=== PATIENT | female | born 2005 | race Caucasian/White ===

== ENCOUNTER 2024-06-05 15:36 | Emergency (ER) | payer OTHER, SELFPAY ==
[2024-06-05 15:49] VITALS: BP 109/61; PULSE 81; RESP 16; TEMP 36.5; O2SAT 100; BMI 24.0
--- NOTE | 2024-06-05 16:04 | ED_ITS ---
HPI - General Adult General Chief complaint: Extremity Problem Stated complaint: Foot injury Time Seen by Provider: 06/05/24 16:01 Source: patient Mode of arrival: ambulatory Limitations: no limitations History of Present Illness ED Provider: Marcial ERICKSON HPI narrative: 18-year-old female healthy no past medical history presents to ED for chronic ingrown toenails of bilateral great toes for 1 year. Patient had another exacerbation the past couple of days. Patient denies any recent trauma, fever, or chills. Related Data Previous Rx's ?Medication ?Instructions ?Recorded triamcinolone acetonide 0.5 % 1 appl topical BID 2 weeks #15 06/05/24 topical cream grams Allergies Allergy/AdvReac Type Severity Reaction Status Date / Time No Known Allergies Allergy Verified 06/05/24 15:57 Review of Systems 2 Review of Systems: bilateral ingrown toe kings Yes all other systems are reviewed and are negative [facility] Social History Social History Advance Directives: No Advance Directives Information Provided: Yes Physical Exam ED Vital Signs: Vital Signs - 24 hr 06/05/24 15:49 Temperature 97.7 F Pulse Rate 81 Respiratory Rate 16 Blood Pressure 109/61 Pulse Oximetry 100 Oxygen Delivery Method Room Air BMI result Body Mass Index 24.0 Const General: cooperative, healthy appearing, comfortable, no acute distress, well developed, alert, awake and Physically active [facility] Head: Yes normal to inspection, Yes No palpable skull fracture present, Yes normocephalic and Yes atraumatic Eyes General: appearance normal, both eyes and all related structures Neck Neck: Yes normal visual inspection, Yes full ROM, Yes no lymphadenopathy, Yes no meningeal signs, Yes trachea midline, Yes supple, No anterior neck swelling and No tender Chest Chest palpation & inspection: normal inspection of the chest and normal palpation of entire chest wall Resp Effort & Inspection: normal respiratory effort and able to speak in complete sentences Auscultation: clear to auscultation bilaterally Cardio Jugular venous distension: no JVD Heart sounds: S1 normal heart sound present and S2 normal heart sound present GI Inspection: Yes normal to inspection Palpation (GI): Soft to palpation, not firm, nontender, no guarding and not rigid General: No CVA tenderness and Yes no CVA tenderness Back/Spine/Pelvis Back: no CVA tenderness, No CVA tenderness and No back tenderness Skin General skin exam: no rashes or lesions noted, elasticity normal and turgor normal Neuro General: gait normal, tone normal, moves all extremities, Normal light touch and pain sensation, no meningeal signs, no focal motor deficits, CN's II-XI intact bilaterally and normal sensation to monofilament Extrem Other: Positive for bilateral greater ingrown toenails General: Yes normal to inspection and Yes full ROM Ankle/foot/toe images: 2 1. Positive for ingrown toenail. Negative for any pus discharge or foul odor. Positive for slight erythema. Negative ecchymosis. Negative for crepitus or swelling. Rest of extremity normal. Motor/neuro/vascular exam intact. 2. Positive for ingrown toenail. Negative for any pus discharge or foul odor. Positive for slight erythema. Negative ecchymosis. Negative for crepitus or swelling. Rest of extremity normal. Motor/neuro/vascular exam intact. Psych Appearance: grossly normal, well kempt and not disheveled Medical Decision Making Medical Decision Making MDM Narrative: 18-year-old female presents ED for bilateral great toe ingrown toenail that has been chronic for year and exacerbated the past couple of days. Patient denies any recent trauma, feet swelling, fever, chills, bluish discoloration, or numbness/tingling. Physical exam positive for bilateral ingrown toenails of great toe without any pus discharge or signs of infection. Daughter and mother educated on conservative treatment management as per up-to-date. Would recommend warm soapy water soak the foot for 10-20 minutes twice a day for 2 weeks and also high dose steroids on ingrown toenail for the past 2 weeks. Patient and mother explained worrisome signs and informed to return to the ED immediately. Not suspecting cellulitis, paronychia, osteomyelitis, fracture, gout Differential Diagnosis Differential Diagnoses: The differential diagnosis associated with the presentation includes (ingrown toe nail, contact dermatitis, cellulitis) Admission/Observation Consideration of admission/observation: Escalation of care including admission/observation considered Independent Historian Clinical information obtained from an independent historian. History obtained from or confirmed by: Parent (mother) and Other (Patient) External Record Review External record reviewed: Other (prior visit) Prescription Management I considered prescription management with: Other (Hydrocortisone) Discharge Plan Discharge Clinical Impression: Ingrown nail of great toe Patient Disposition: Home, Self-Care Instructions: Ingrown Nail (ED), Warm Compress or Soak (ED) Additional Instructions: Recommend follow-up with primary care provider and also for referral to information technology officer. Return to the ED immediately for severe pain, increased swelling, increased redness, pus discharge, bluish black discoloration, fever, chills, or any other concerning symptoms. Soak your toes in warm soapy water for 20 minutes twice a day for 2 weeks. Also placed steroid on ingrown toenails for 2 weeks. Prescriptions: New triamcinolone acetonide 0.5 % cream 1 appl topical BID 14 Days Qty: 15 0RF Rx Instructions: Placed on ingrown toenails. Stand Alone Forms: Work/School Release Interventions: ED Discharge Assessment Last Done: 06/05/24 16:17 Discharge Date/Time: 06/05/24 16:17 Print Language: Macedonian
[2024-06-05 16:17] VITALS: BP 109/61; PULSE 81; RESP 16; TEMP 36.5; O2SAT 100
== END 2024-06-05 16:17 | disposition home or self-care (01) ==
PROVIDERS: Emergency Provider Emergency Medicine
DX: L60.0 Ingrowing nail (principal)
CPT/HCPCS: 99282; 99283

== ENCOUNTER 2024-06-19 10:23 | Emergency (ER) | payer OTHER, SELFPAY ==
[2024-06-19 10:48] VITALS: BP 115/57; PULSE 70; RESP 14; TEMP 36.2; O2SAT 99; BMI 21.7
--- NOTE | 2024-06-19 13:34 | ED.LOWEXIN ---
HPI - Extremity Injury (Lower) General Chief Complaint: Extremity Injury, Lower Stated Complaint: Foot pain Time Seen by Provider: 06/19/24 11:39 Source: patient, RN notes reviewed and old records reviewed Mode of arrival: ambulatory History of Present Illness ED Provider: Gayla Gómez PA-C [facility] Narrative: 18-year-old female with a past medical history of bilateral ingrown toenails presenting to the ED complaining of worsening ingrown toenails with drainage/bleeding. Patient states she has had ingrown toenails for over a year, was evaluated in our ED on 06/05 per similar symptoms, prescribed topical steroid cream without relief. Denies fever, chills, trauma Related Data Previous Rx's ?Medication ?Instructions ?Recorded triamcinolone acetonide 0.5 % 1 appl topical BID 2 weeks #15 06/05/24 topical cream grams Allergies Allergy/AdvReac Type Severity Reaction Status Date / Time No Known Allergies Allergy Verified 06/19/24 10:48 Review of Systems Review of Systems: Yes all other systems are reviewed and are negative Constitutional: Constitutional: Reports as per [facility] Past Medical History Attestation statement: The following information was validated with the patient. Source: old records reviewed Social History Social History Advance Directives: No Do you have a plan to hurt others: No Plan Physical Exam Vital Signs: Vital Signs: Last Vital Signs Temp 97.2 F 06/19/24 13:57 Pulse 70 06/19/24 13:57 Resp 14 06/19/24 13:57 BP 115/57 L 06/19/24 13:57 Pulse Ox 99 06/19/24 13:57 O2 Del Method Room Air 06/19/24 13:57 BMI result Body Mass Index 21.7 Const: General: cooperative, healthy appearing and no acute distress Orientation/consciousness: patient oriented x3 Limitations: no limitations HEENT: Head: Yes normal to inspection and Yes atraumatic Ears: hearing grossly normal bilaterally General nose exam: Normal external nose present Face and sinus: Yes normal facial exam Eyes: General: appearance normal, both eyes and all related structures EOM: EOMs intact bilaterally Neck: Neck: Yes normal visual inspection and Yes no meningeal signs Resp: Effort & Inspection: normal respiratory effort and no respiratory distress Cardio: Rate: regular rate Skin: Other: + bilateral great toe ingrown toenails to medial aspects. + appreciable skin swelling. Slight drainage. No fluctuance or induration. No active bleeding. Rashes: no rashes Wounds: no wounds Neuro: General: patient oriented x3, tone normal and no meningeal signs Cranial nerves: Yes CN's II-XII intact bilaterally Gait exam (Neuro): Normal gait present Extrem: General: Yes normal to inspection Medications Administered Discontinued Medications Generic Name Dose Route Start Last Admin Trade Name Elisha PRN Reason Stop Dose Admin Lidocaine HCl 10 ml 06/19/24 12:10 06/19/24 13:35 Lidocaine Hcl 1 % Mpf 5 Ml Vial INFILTRATI 06/19/24 12:11 10 ml ONCE ONE Administration Medical Decision Making Medical Decision Making MDM Narrative: 18-year-old female with a past medical history of bilateral ingrown toenails presenting to the ED complaining of worsening ingrown toenails with drainage/bleeding. On exam VSS, NAD, nontoxic appearing, PE as above with bilateral ingrown toenails. No cellulitis or abscess formation. Plan: I&D ingrown toenails Please refer to course for remaining clinical decision making, interpretation of labs/imaging results, and discussions with consultants and/or family members. Differential Diagnosis Differential Diagnoses: The differential diagnosis associated with the presentation includes As above External Record Review External record reviewed: Inpatient record, Office record, Outpatient record, Prior outpatient labs, Prior outpatient radiology, Primary care record and Outside ED record Tests considered The following testing was considered but not selected: As above Prescription Management I considered prescription management with: Pain Medication and Antibiotic Procedures Procedure Narrative Procedure Narrative: Bilateral ingrown toenail removal. Digital block performed Scissors/Forceps use with good result. No complications Discharge Plan Discharge Clinical Impression: Ingrown toenail Patient Disposition: Home, Self-Care Instructions: Ingrown Nail (ED) Additional Instructions: Please take Tylenol and Motrin at home [facility] Follow-up with Podiatry If area begins to look infected, is red, there is pus drainage or you have fever return to the ED Prescriptions: No Action triamcinolone acetonide 0.5 % cream 1 appl topical BID 14 Days Qty: 15 0RF Rx Instructions: Placed on ingrown toenails. Referrals: Teto Yousif MD [Physician] - Gm Yousif DPM [Physician] - Stand Alone Forms: Work/School Release Interventions: ED Discharge Assessment Last Done: 06/19/24 13:57 Discharge Date/Time: 06/19/24 13:58 Print Language: [place] Arabian
[2024-06-19] MEDS: Lidocaine HCl 1 % MPF 5 ML VIAL 10 ML INFILTRATI (13:35)
[2024-06-19 13:57] VITALS: BP 115/57; PULSE 70; RESP 14; TEMP 36.2; O2SAT 99
== END 2024-06-19 13:58 | disposition home or self-care (01) ==
PROVIDERS: Emergency Provider Emergency Medicine
DX: L60.0 Ingrowing nail (principal)
CPT/HCPCS: 11750; 99283; 99284; J2003

== ENCOUNTER 2024-11-30 08:37 | Emergency (ER) | payer MEDICAID, SELFPAY ==
[2024-11-30 08:41] VITALS: BP 124/74; PULSE 86; RESP 18; TEMP 36.7; O2SAT 100; BMI 26.0
--- NOTE | 2024-11-30 09:18 | ED_ITS ---
HPI - Female Genitourinary General Chief complaint: Urogenital-Female Stated complaint: ? STD Anxiety Time Seen by Provider: 11/30/24 09:18 History of Present Illness ED Provider: Ganga ANAYA Narrative: The patient is a 19-year-old female. She reports a history of anxiety and panic attacks. She had an episode of a panic attack and was taken to the emergency room at [facility] in [place]. She says that since then she has had increasing frequency of panic attacks although she can not identify any acute stressors. She lives with her mother and her 4 year old son. She says that she gets along well with her mother and her child and she feels safe at home. The patient is also worried about the possibility of a sexually transmitted disease. She says that for the last 2 weeks she has had some vaginal discharge and vaginal discomfort and urinary discomfort. No definite fever, sweats, chills. No flank pain. Her last intercourse was 4 weeks ago she says. Related Data Previous Rx's ?Medication ?Instructions ?Recorded triamcinolone acetonide 0.5 % 1 appl topical BID 2 weeks #15 06/05/24 topical cream grams doxycycline monohydrate 100 mg 100 mg PO BID #20 caps 11/30/24 capsule metronidazole 500 mg tablet 500 mg PO BID #20 tabs 11/30/24 Allergies Allergy/AdvReac Type Severity Reaction Status Date / Time No Known Allergies Allergy Verified 11/30/24 08:42 Review of Systems Review of Systems: Yes all other systems are reviewed and are negative [facility] Social History Social History Advance Directives: No Advance Directives Information Provided: Yes Physical Exam Vital Signs: Vital Signs: Last Vital Signs Temp 98.0 F 11/30/24 12:39 Pulse 75 11/30/24 12:39 Resp 15 11/30/24 12:39 BP 104/65 11/30/24 12:39 Pulse Ox 100 11/30/24 12:39 O2 Del Method Room Air 11/30/24 12:39 BMI result Body Mass Index 26.0 Const: Other: The patient is a healthy looking 19-year-old who was awake and alert, pleasant and cooperative. She does not appear obviously il Orientation/consciousness: patient oriented x3 HEENT: Other: Face is symmetrical. Pharynx is unremarkable. The posterior pharynx is unremarkable. Eyes: General: appearance normal, both eyes and all related structures Neck: Neck: Yes normal visual inspection, Yes full ROM and Yes no l ymphadenopathy Resp: Effort & Inspection: normal respiratory effort Auscultation: clear to auscultation bilaterally Cardio: Rate: regular rate Rhythm: regular rhythm Heart sounds: S1 normal heart sound present and S2 normal heart sound present GI: Other: The abdomen is flat, soft, and nontender. : Other: The patient had normal external genitalia. No external lesions. There was copious whitish vaginal discharge. No significant cervical motion or adnexal tenderness on bimanual exam. General: Yes no CVA tenderness Back/Spine/Pelvis: Back: no CVA tenderness Skin: General skin exam: no rashes or lesions noted Neuro: General: patient oriented x3, gait normal, tone normal, moves all extremities, no focal motor deficits and CN's II-XI intact bilaterally Extrem: Other: No peripheral edema Medications Administered Discontinued Medications Generic Name Dose Route Start Last Admin Trade Name Frankq PRN Reason Stop Dose Admin Ceftriaxone Sodium 500 mg 11/30/24 10:24 11/30/24 11:05 Ceftriaxone Sodium 500 Mg Vial IM 11/30/24 10:25 500 mg ONCE ONE Administration Doxycycline Monohydrate 100 mg 11/30/24 10:24 11/30/24 11:05 Doxycycline Monohydrate 100 Mg Capsule PO 11/30/24 10:25 100 mg ONCE ONE Administration Lorazepam 1 mg 11/30/24 10:15 11/30/24 11:06 Lorazepam 1 Mg Tablet PO 11/30/24 10:16 1 mg ONCE ONE Administration Metronidazole 500 mg 11/30/24 10:24 11/30/24 11:06 Metronidazole 500 Mg Tablet PO 11/30/24 10:25 500 mg ONCE ONE Administration Medical Decision Making Medical Decision Making MDM Narrative: The patient is a very pleasant 19-year-old who presents with 2 weeks of vaginal symptoms including vaginal itching and discomfort and discharge. Her last intercourse was about a month ago. On exam the patient does not appear toxic in any way. Her abdomen is benign. Her pelvic exam reveals a copious milky discharge but no significant cervical motion tenderness or adnexal tenderness. Was treated with IM ceftriaxone as well as doxycycline and metronidazole. Her vaginal swabs have tested positive for bacterial vaginosis. The patient also had complaints related to anxiety and panic attacks. She was seen by the care team. The patient seems safe for outpatient referrals. Apparently referrals has been made to [facility] and they should be calling her. The patient is advised to follow up with the [facility] where she gets her primary care. She is also advised to follow up with Gynecology regarding her bacterial vaginosis. Lab Data Labs: Lab Results 11/30/24 11/30/24 11/30/24 Range/Units 09:19 10:16 10:17 Urine Color Yellow Urine Appearance Clear Urine pH 6.0 (5.0-9.0) Ur Specific [place] 1.025 (1.005-1.025) Urine Protein Negative (Neg-Trace) mg/dL Urine Glucose (UA) Negative (Negative) mg/dL Urine Ketones Trace (Negative) mg/dL Urine Blood Negative (Negative) Urine Nitrite Negative (Negative) Ur Leukocyte Esterase Negative (Negative) Urine Test NEGATIVE (NEGATIVE) Chlam trachomat DNA PCR Cancelled NOT DETECTED N.gonorrhoeae DNA (PCR) Cancelled NOT DETECTED T. vaginalis (PCR) NOT DETECTED (Not Detect) Bact vaginosis (PCR) POSITIVE A (Negative) C. krusei/glabrata (PCR) NOT DETECTED (Not Detect) Cortney group (PCR) NOT DETECTED (Not Detect) Discharge Plan Discharge Clinical Impression: Bacterial vaginosis, Anxiety Patient Disposition: Home, Self-Care Instructions: Bacterial Vaginosis (ED) Additional Instructions: You has been prescribed 2 antibiotics, metronidazole, and doxycycline. Please take both of these for the full 10 days. Please complete both courses of antibiotics. If you wish you may contact the [facility] office ( [facility]) for follow up with your bacterial vaginosis. I think it would be good for you to make an appointment with this clinic to make sure that the infection has cleared. Alternatively you may follow up with your primary care doctor's office if you wish. I believe that the care team here has made referrals for you for help with your anxiety. I believe you are supposed to be getting a call from the [facility]. I have given you their contact information as well. Return to the emergency room if significantly worse. Prescriptions: New metronidazole 500 mg tablet 500 mg PO BID Qty: 20 0RF doxycycline monohydrate 100 mg capsule 100 mg PO BID Qty: 20 0RF No Action triamcinolone acetonide 0.5 % cream 1 appl topical BID 14 Days Qty: 15 0RF Rx Instructions: Placed on ingrown toenails. Referrals: [facility] [Provider Group] (bacterial vaginosis, anxiety) [facility] [Provider Group] (Bacterial vaginosis) [facility] [Provider Group] (anxiety) Interventions: ED Discharge Assessment Last Done: 11/30/24 12:39 Discharge Date/Time: 11/30/24 12:41 Print Language: Malawian
[2024-11-30 09:26] LABS: Appearance Urine Clear; Color Urine Yellow; Glucose Urine UA Negative (Negative); Leukocyte Esterase Urine Negative (Negative); Nitrite Urine Negative (Negative); Specific Gravity - Urine 1.025 (1.005-1.025); Urine Blood Negative (Negative); Urine Ketones Trace mg/dL (Negative); Urine Protein Negative (Neg-Trace)
[2024-11-30 09:28] LABS: UPreg QC Valid YES; Urine Pregnancy NEGATIVE (NEGATIVE)
[2024-11-30 10:50] VITALS: BP 109/66; PULSE 72; RESP 14; TEMP 36.6; O2SAT 99
--- OUTSIDE RECORDS SUMMARY | 2024-11-30 10:59 | XMS_ITS | Clinical Summary ---
Author Organization [facility] Address [address] [place] [address] Care Team Providers Care Weblogic Administrator Name Role Phone Anh Barney NP Primary Care Provider [phone] Source Comments PLEASE NOTE, if this patient is a minor, it may be UNLAWFUL to discuss sensitive information that is contained in these records (such as FAMILY PLANNING, MENTAL HEALTH or SUBSTANCE ABUSE) with the minor patient's parent or other person without the patient's specific authorization.[facility] Allergies No known active allergies Medications clobetasoL (TEMOVATE) 0.05 % ointmentIndicat ions:Dermatitis Apply topically 2 (two) times daily 60 g 1 Active Hospital, Clinic, or Other Facility Administered Medication Ordered Dose Route Frequency Start Date End Date Status etonogestreL (NEXPLANON) implant 68 mgIndications:Nexplanon insertion 68 mg sdrm Once 02/24/2024 Active Active Problems Problem Noted Date Diagnosed Date ZULEIMA (generalized anxiety disorder) 10/05/2024 Susceptible varicella 02/20/2024 Hepatitis B immune 02/12/2024 Refugee health examination 02/09/2024 Overview (02/09/2024): Arrived from [facility] in December 2023, originally from [facility], bn in [facility], [employer] , no Class A/B, CXR 09-09-23 neg, Treated with Ivermectin and Albendazole 01-18-24 Tinea versicolor 02/09/2024 Resolved Problems Problem Noted Date Diagnosed Date Resolved Date Lower abdominal pain 02/09/2024 025 Encounters Date Type Department Care Team Description 10/31/2024 1:00 PM EST Office Visit [facility] [address] [place] [phone] Valentina Boston RHD Encounter for dental examination (Primary Dx); Caries; Defective dental orthodox; Caries of enamel (incipient); Chronic gingivitis, plaque induced 10/05/2024 1:00 PM EST Office Visit [facility] [address] [place] [phone] Anh Barney NP Routine general medical examination at a health care facility (Primary Dx); Dermatitis from Last 3 Months Immunizations Immunization Administration Dates Next Due HEP B, PED/ADOL 09/23/2023 HPV 9 (Gardasil) 08/23/2024,,02/09/2024(Deferr ed: Out of Stock) Hep B,adult,adjuvanted (HEPLISAV) 02/09/2024(Def erred: Out of Stock) IPV 02/09/2024 Influenza (FLUBLOK),recombinant,injectable,pres ervative Free 08/23/2024 MMR (MMR II/Priorix) 09/12/2023 Pfizer COVID-19 (Comirnaty), Mrna, Lnp-s, Pf, Ruddy-sucrose, 30 Mcg/0.3 Ml, 12yr+ 08/23/2024 TDAP 02/09/2024 Td (adult) unspecified 09/12/2023 Varicella, Live Vaccine 03/12/2024,02/09/2024 Family History Relation Name Status Comments Mother 04-11-84 Alive Social History Tobacco Use Types Packs/Day Years Used Date Smoking Tobacco: Never Passive Smoke Exposure: Never Smokeless Tobacco: Never Tobacco Cessation:Counseling Given: Yes Alcohol Use Standard Drinks/Week Comments Never 0 (1 standard drink = 0.6 oz pur e alcohol) Social Connections Answer Date Recorded Connectedness 0 05/26/2024 Financial Resource Strain Answer Date R ecorded Financial Resource Strain 0 2023 Stress Answer Date Recorded Stress 0 01/20/2024 Physical Activity Answer Date Recorded Physical Activity 0 01/20/2024 Food Insecurity Answer Date Recorded Food 0 05/24/2024 Transportation Needs Answer Date Record ed Transportation 0 01/20/2024 Housing Stability Answer Date Recorded Housing 0 01/20/2024 Safety and Environment Answer Date Jourdan rded Safety 0 01/20/2024 Utilities Answer Date Recorded Utilities 0 01/20/2024 Employment Answer Date Recorded Stress 0 05/26/2024 Comments No Sex and Gender Information Value Date Recorded Sex Assigned at Female 02/09/2024 11:16 AM PDT Legal Sex Female 9:40 AM PDT Gender Identity Female 02/09/2024 11:16 AM PDT Sexual Orientation Straight 02/09/2024 11 :16 AM PDT 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 Not on file Not on file Not on file Last Filed Vital Signs Vital Sign Reading Time Taken Comments Blood Pressure 101/62 10/31/2024 1:01 PM EST Pulse 80 10/31/2024 1:01 PM EST Temperature 36.8 ??C (98.2 ??F) 10/05/2024 1:10 PM ES T Respiratory Rate 18 10/05/2024 1:10 PM EST Oxygen Saturation 98% 10/05/2024 1:10 PM EST Inhaled Oxygen Concentration - - Weight 58.5 kg (129 lb) 10/05/2024 1:10 PM EST Height 154.9 cm (5' 1 ) 10/05/2024 1:10 PM EST Body Mass Index 24.37 10/05/2024 1:10 PM EST Plan of Treatment Upcoming Encounters Date Type Department Care Team (Late st Contact Info) Description 12/04/2024 9:00 AM EDT Office Visit [facility] [address] [place] [phone] Margot Campbell, DMD [address] [place] [address] 01/01/2025 9:00 AM EDT Office Visit [facility] [address] [place] [phone] Narinder Glover DDS [address] [place] [address] Health Maintenance Due Date Last Done Comments Anxiety Screening 2004 Dental Perio Charting 2004 Relationship Safety Screening/Counseling 2019 Alcohol and Drug Screen 08/29/2024 Imm-HPV (3 - 3-dose series) 11/15/2024 12/2 01/2024, 03/12/2024 Chlamydia Screening 02/08/2025 02/09/2024 Gonorrhea Screening 02/08/2025 02/09/2024 Dental Examination 05/05/2025 10/31/2024 Dental Prophy 05/05/2025 10/31/2024 Tobacco Screening 10/05/2025 10/05/2024 Dental BW 11/02/2025 10/31/2024 LARC-Nexplanon implant 02/23/2027 02/24/2024 Hypertension Screening (#1) 10/31/2027 Dental FMX/Pano 11/02/2029 10/31/2024 Imm-DTaP/Tdap/Td (2 - Td or Tdap) 02/08/2034 02/09/2024, 09/12/2023 Imm-MMR Completed 09/12/2023 Imm-Hepatitis B Discontinued 09/23/2023 HIV Screening Completed 02/09/2024 Hepatitis C Screening Completed 02/09/2024 Imm-Varicella Completed 03/12/2024, 02/09/2024 [id number] Completed 08/23/2024 Imm-Influenza Completed 08/23/2024 Depression Annual Screen Completed 10/05/2024 Imm-Hepatitis A Aged Out No longer el igible based on patient's age to complete this topic Procedures Procedure Name Priority Date/Time Associated Diagnosis Comments DENTAL CASE MANAGEMENT - MOTIVATIONAL INTV Routine 10/31/2024 1:00 PM EST Caries Caries of enamel (incipient) Encounter for dental examination PROPHYLAXIS - ADULT Routine 10/31/2024 1 :00 PM EST Caries Caries of enamel (incipient) Encounter for dental examination INTRAORAL - COMP SERIES OF RADIOGRAPHIC IMAGES Routine 10/31/2024 1:00 PM EST Caries Defective dental orthodox Caries of enamel (incipient) Encounter for dental examination COMP ORAL EVALUATION - NEW/ESTABLISHED PATIENT Routine 10/31/2024 1:00 PM EST Caries Caries of enamel (incipient) Encounter for dental examination CARIES RISK ASSESSMENT & DOC FINDING HIGH RISK Routine 10/31/2024 1:00 PM EST Caries Caries of enamel (incipient) Encounter for dental examination NUTRITIONAL COUNSELING CONTROL OF DENTAL DISEASE Routine 10/31/2024 1:00 PM EST Caries Caries of enamel (incipient) Encounter for dental examination ORAL HYGIENE INSTRUCTIONS Routine 10/31/2024 1:00 PM EST Caries Caries of enamel (incipient) Encounter for dental examination ORAL CANCER SCREENING Routine 10/31/2024 1:00 PM EST Caries Caries of enamel (incipient) Encounter for dental examination CASE PRESENTATION SUBS DTL & EXTENSIVE TX PLN Routine 10/31/2024 1:00 PM EST Encounter for dental examination 9 ROOT CANAL - WISDOM (NO BILLABLE) Routine 10/31/2024 12:00 AM EST 31 ROOT CANAL - WISDOM (NO BILLABLE) Routine 10/31/2024 12:00 AM EST 8 ML COMPOSITE - WISDOM (NON BILLABLE) Routine 10/31/2024 12:00 AM EST 9 MFL COMPOSITE - WISDOM (NON BILLABLE) Routine 10/31/2024 12:00 AM EST 31 MOB COMPOSITE - WISDOM (NON BILLABLE) Routine 10/31/2024 12:00 AM EST HIV 1/2 AG & AB W/RFLX (4TH GEN) Routine 02/09/2024 3:24 PM EDT Refugee health examination HEPATITIS C AB W/RFLX HCV RNA, QT, RT PCR Routine 02/09/2024 3:24 PM EDT Refugee health examination C TRACHOMATIS/N GONORRHOEAE RNA,TMA Routine 02/09/2024 3:24 PM EDT Refugee health examination from Last 3 Months or Most Recently Relevant to Health Maintenance Results * HEPATITIS C AB W/RFLX HCV RNA, QT, RT PCR (02/09/2024 3:24 PM EDT) Pathologist [facility] HEPATITIS C ANTIBODY NON-REACT SYLVIA NON-REACT SYLVIA [employer] [facility] Comment: HCV antibody was non-reactive. There is no laboratory evidence of HCV infection. In most cases, no further action is required. However, if recent HCV exposure is suspected, a test for HCV RNA (test code 22408) is suggested. For additional information please refer to http://Thubrikar Aortic Valve.[email or web address].Gigwell/faq/AMA59o6 (This link is being provided for informational/ educational purposes only.) Blood Blood / Unknown 02/09/2024 3 :24 PM EDT 02/09/2024 3:25 PM EDT Narrative [employer] [facility] [employer] - 02/16/2024 8:14 PM EDT COLLECTION KIT GIVEN TO PATIENT. PATIENT ADVISED TO RETURN. us Angela Smith MD LAB - BLOOD DRAW Edited Resul t - Final [employer] [address] [place] [phone], [employer] [address] [phone] * HIV 1/2 AG & AB W/RFLX (4TH GEN) (02/09/2024 3:24 PM EDT) [facility] HIV AG/AB, 4TH GEN NON-REAC TIVE NON-REAC TIVE [employer] [facility] [employer] [facility] Comment: HIV-1 antigen and HIV-1/HIV-2 antibodies were not detected. There is no laboratory evidence of HIV infection. PLEASE NOTE: This information has been disclosed to you from records whose confidentiality may be protected by state law. ??If your state requires such protection, then the state law prohibits you from making any further disclosure of the information without the specific written consent of the person to whom it pertains, or as otherwise permitted by law. A general authorization for the release of medical or other information is NOT sufficient for this purpose. ?? For additional information please refer to http://Thubrikar Aortic Valve.[employer]/faq/VYP703 (This link is being provided for informational/ educational purposes only.) The performance of this assay has not been clinically validated in patients less than 2 years old. Blood Blood / Unknown 02/09/2024 3 :24 PM EDT 02/09/2024 3:25 PM EDT Narrative [employer] - 02/16/2024 8:14 PM EDT COLLECTION KIT GIVEN TO PATIENT. PATIENT ADVISED TO RETURN. Angela Smith MD LAB - BLOOD DRAW Final Result Performing Organization Address [facility] Co de Phone Number [employer] [address] [address], [employer] [address] [phone] * C TRACHOMATIS/N GONORRHOEAE RNA,TMA (02/09/2024 3:24 PM EDT) CHLAMYDIA TRACHOMATIS RNA, TMA NOT DETECTED NOT DETECTED [employer] NEISSERIA GONORRHOEAE RNA, TMA NOT DETECTED NOT DETECTED [employer] [facility] COMMENT [employer] [facility] Urine Urine specimen / Unknown 02/09/2024 3:24 PM EDT 02/09/2024 3:25 PM EDT Narrative [employer] [facility] [employer] [facility] - 02/16/2024 8:14 PM EDT COLLECTION KIT GIVEN TO PATIENT. PATIENT ADVISED TO RETURN. The analytical performance characteristics of this assay, when used to test SurePath(TM) specimens have been determined by [employer]. The modifications have not been cleared or approved by the FDA. This assay has been validated pursuant to the CLIA regulations and is used for clinical purposes. For additional information, please refer to https://education.[employer]/faq/OIX410 (This link is being provided for information/ educational purposes only.) us Angela Smith MD LAB - NO BLOOD DRAW Edited Re sult - Final Performing Organization Address [facility] Co de Phone Number [employer] [address] [address], [employer] [address] [phone] from Last 3 Months or Most Recently Relevant to Health Maintenance Insurance [id number] [address] [place] Care Teams Weblogic Administrator Relationship Specialty Start Date End Date Anh Barney NP [address] [place] [address] PCP - General Internal Medicine 02/27/24
[2024-11-30] MEDS: Doxycycline Monohydrate 100 MG CAPSULE PO (11:05)
[2024-11-30] MEDS: cefTRIAXone sodium 500 MG VIAL IM (11:05)
[2024-11-30] MEDS: metroNIDAZOLE 500 MG TABLET PO (11:06)
[2024-11-30] MEDS: LORazepam 1 MG TABLET PO (11:06)
--- NOTE | 2024-11-30 11:30 | MHC.CARE ---
Pt is a 19 y/o, single, Salvadorean speaking, female who is previously unknown to the CARE Team.? She reports a history of anxiety and panic and was recently seen in the [facility] ED after a panic attack. There is also concern about a potential recent transmission of an STD after a sexual encounter.? CARE Team has received an order for a consult for resources. Pt is alert and oriented x4 and is assessed in her room in the main ED.? She is dressed in street attire, appears her stated age, and her grooming is unremarkable.? She presents with a bright affect and easily engages with CARE Team.? Her speech and eye contact are unremarkable.? She is assessed on a consult request with the assistance of digital art director services. Pt reports worsening panic attacks since August of this year.? She reports a hx of panic attacks but has noted an increase to approximately 4 times a week.? She reports that these panic attacks are concerning as she does not like the way they make her feel. Pt also reports a decrease in appetite and an erratic sleep pattern stating she sleeps approximately 4-5 hours a night on average but on her days off spends much more time in bed wanting only to sleep. 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 She reports he is quite active. Pt is seeking referrals for therapy with the intent to work with a provider to find a medication regimen that would control her anxiety and panic attacks. In speaking with pt, there does not appear to be any risk, nor is there any apparent acute crisis occurring. Pt will be referred to [facility] for Therapy.? The [facility] was discussed with pt as well and identified as a resource.
[2024-11-30 11:56] LABS: CT PCR NOT DETECTED (Not Detect.); NG PCR NOT DETECTED (Not Detect.)
[2024-11-30 11:56] LABS: Bacterial Vaginosis PCR POSITIVE (Negative); Candida Group PCR NOT DETECTED (Not Detect); Candida glab krusei PCR NOT DETECTED (Not Detect); Trichomonas vaginalis PCR NOT DETECTED (Not Detect)
[2024-11-30 12:33] VITALS: BP 104/65; PULSE 75; RESP 15; TEMP 36.7; O2SAT 100
[2024-11-30 12:39] VITALS: BP 104/65; PULSE 75; RESP 15; TEMP 36.7; O2SAT 100
--- NOTE | 2024-11-30 13:43 | MHC.CARE ---
[facility] referral complete
== END 2024-11-30 12:41 | disposition home or self-care (01) ==
PROVIDERS: Emergency Provider Emergency Medicine
DX: N76.0 Acute vaginitis (principal); F41.9 Anxiety disorder, unspecified; F41.0 Panic disorder [episodic paroxysmal anxiety]; L29.2 Pruritus vulvae; Z20.2 Contact with and (suspected) exposure to infections with a predominantly sexual mode of transmission; Z79.899 Other long term (current) drug therapy
CPT/HCPCS: 81003; 81025; 81515; 87491; 87591; 96372; 99284; J0696